=== PATIENT | female | born 1995 | race Caucasian/White ===

== ENCOUNTER 2025-03-23 08:50 | Outpatient (REF) | payer OTHER, SELFPAY ==
--- NOTE | ~2025-03-23 | US_ITS ---
EXAMINATION: US THYROID CLINICAL INFORMATION: Abnormal weight loss, nontoxic thyroid nodule. COMPARISON: None available. TECHNIQUE: Linear transducer grayscale and color Doppler examination with attention to the region of the thyroid. FINDINGS: SIZE: Measurements of the thyroid lobes and nodules are given in sagittal, anteroposterior and transverse dimensions respectively. Right Thyroid Lobe: 4.6 x 1.7 x 1.2 cm, volume 4.9 mL. Parenchyma: The gland echotexture is homogeneous. Thyroid vascularity is normal. Left Thyroid Lobe: 4.5 x 1.2 x 1.5 cm, volume 4.2 mL. Parenchyma: The gland echotexture is homogeneous. Thyroid vascularity is normal. Isthmus: 0.3 cm in maximum AP dimension. There are no discrete nodules identified in the thyroid gland. NODES: No lymphadenopathy is seen in the tissue surrounding the thyroid gland. US/US thyroid IMPRESSION: 1. Normal thyroid ultrasound. No nodules. Electronically signed by: Jose Martinez MD 03/23/2025 11:28 AM EDT
--- OUTSIDE RECORDS SUMMARY | 2025-03-23 09:23 | XMS_ITS | Encounter Summary ---
Author Organization [facility] Address [address] [place] [address] [place] [phone] Phone Care Team Providers Care Casino Beverage Server Name Role Phone Bertha Burr CNP Primary Care Provider + Radha Lara DO Primary Care Provider + Encounter Details Date Type Department Care Team (Late st Contact Info) Description 01/30/2023 Procedure Pass [facility] Endoscopy Admitting Dept Virtual Department [address] [place] [address] Social History Tobacco Use Types Packs/Day Years Used Date Smoking Tobacco: Never Smokeless Tobacco: Never Alcohol Use Standard Drinks/Week Comments Yes 0 (1 standard drink = 0.6 oz pur e alcohol) socially-once a week Education Answer Date Recorded Are you interested in more education? Not on james e 10/17/2022 Are you concerned about learning? Not on file 10/17/2022 No 10/17/2022 No 10/17/2022 Digital Access Answer Date Recorded No 11/18/2022 No 11/18/2022 Reliable internet access at home? Not on file 11/18/2022 Device with a working camera? Not on file Comments No Sex and Gender Information Value Date Recorded Sex Assigned at Not on file Legal Sex Female 2:58 PM EDT Gender Identity Not on file Sexual Orientation Not on file documented as of this encounter Plan of Treatment Not on file documented as of this encounter Visit Diagnoses Not on filedocumented in this encounter Care Teams Casino Beverage Server Relationship Specialty Start Date End Date Bertha Burr CNP [address] [place] [address] [email or web address] PCP - General Gynecology 03/26/18 03/22/23 Radha Lara DO [address] [place] [address] [email or web address] PCP - General Family Medicine 03/23/23 documented as of this encounter Additional Source Comments The information contained in this document represents components of the legal health record. It is not the complete legal health record.[facility]
--- OUTSIDE RECORDS SUMMARY | 2025-03-23 09:23 | XMS_ITS | Clinical Summary ---
Author Organization [facility] Address [address] [place] [address] Care Team Providers Care Sustainability Consultant Name Role Phone Divya Montanez MD Primary Care Provider [phone] Divya Montanez MD Unavailable [phone] Medications Norethin Gurmeet-Eth Estrad-FE (07/11) 1-20 MG-MCG per tablet TAKE 1 TABLET DAILY DIRECTED. 84 3 09/24/2015 Active Active Problems Problem Noted Date Diagnosed Date ASCUS of cervix with negative high risk HPV 01/21 Well woman exam with routine gynecological exam 02/10/2017 Screen for sexually transmitted diseases 016 Metrorrhagia 11/14/2015 Overview (07/26/2023): Impression - [id number]: was improved on Nuvaring but she does not want to use that, we discussed option like Nexplanon , ortho evra, Depo because of much better effectiveness nydia with progesterone methods, she declines now, also discussed IUD. she wants to work at [employer] over the summer while she ois away from boyfriend, discussed condoms Dyspareunia 11/14/2015 Overview (07/26/2023): Impression - [id number]: discussed using a silicone based lubricant NYDIA with condoms. 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: persistent positive lyme IgM; Description: persistent positive lyme IgM Psoriasis 02/24/2012 Overview (07/26/2023): Description: Scalp Resolved Problems Problem Noted Date Diagnosed Date Resolved Date Concussion 11/10/2013 11/24/2013 Immunizations Immunization Administration Dates Next Due DT (pediatric) 03/18/2006 DTaP 12/04/1999, 7,05/13/1996,03/09/1996,0 01/01/1996 HPV4 (Gardasil 4) 02/03/2011,05/24/2008,03/18/20 06 Hep A - 12/26/2013 Hep B (adult) 09/07/1996,1995,1995 IPV 12/04/1999,05/01/1997,03/09/1996 Influenza (SEASONAL) - 04/05/2015,05/06/2014,10/2012 MMR 12/04/1999,05/02/1997 Meningococcal ACWY (Menactra) 05/18/2013 PPD/TST (Tuberculin Skin Test) 12/26/2013 Tdap 02/10/2017 Family History Medical History Relation Name Comments Autism Brother Autistic Disord er : Brother Other Brother Sensory Integra tion Dysfunction : Brother Other Father Attention-defic it Hyperactivity Disorder : Father, Sibling, Family History Gastrointestinal Disorder Mother Ir ritable Bowel Syndrome : Mother, Father, Family History Neuromuscular Disorder Mother Fibro myalgia : Mother Other Mother Psoriasis : Mot her Psych/Mental Health Mother Anxiety Disorder NOS : Mother Gastrointestinal Disorder Other Ir ritable Bowel Syndrome : Mother, Father, Family History Other Other Attention-defic it Hyperactivity Disorder : Father, Sibling, Family History Other Sibling Attention-defic it Hyperactivity Disorder : Father, Sibling, Family History Relation Name Status Comments Brother Father Mother Other Sibling Social History Tobacco Use Types Packs/Day Years Used Date Smoking Tobacco: Never Assessed Comments:Smoking Status:No c urrent tobacco use Comments Unknown Sex and Gender Information Value Date Recorded Sex Assigned at Not on file Legal Sex Female 9:33 PM EDT Gender Identity Not on file Sexual Orientation Not on file Last Filed Vital Signs Vital Sign Reading Time Taken Comments Blood Pressure 110/70 01/28/2018 2:50 PM EDT Pulse 59 01/28/2018 2:50 PM EDT Temperature 37.2 C (98.9 F) 01/28/2018 2:50 PM EDT Respiratory Rate - - Oxygen Saturation 98% 01/28/2018 2:50 PM EDT RA Inhaled Oxygen Concentration - - Weight 61.7 kg (136 lb) 01/28/2018 2:50 PM EDT Height 167.6 cm (5' 6 ) 01/28/2018 2:50 PM EDT Body Mass Index 21.95 01/28/2018 2:50 PM EDT Plan of Treatment Health Maintenance Due Date Last Done Comments Hepatitis C Screening 1995 Hep A (2 of 2 - 2-dose series) 06/28/2014 12/26/2013 Pap Smear 01/28/2021 01/28/2018, 02/10/2017 COVID-19 Vaccine ( season) 2025 Influenza (#1) 2025 04/05/2015, 04/22, 02/24/2013 DTaP/Tdap/Td (7 - Td or Tdap) 02/10/2027 02/10/2017, 12/04/1999, 05/01/1997, Additional history exists Zoster (Shingrix) (1 of 2) 11/03/2045 Hep B Completed 09/07/1996, 11/20, 1995 HPV Vaccine Completed 02/03/2011, 08/2007, 03/18/2006 Meningococcal ACWY Completed 05/18/2013 Hib Aged Out No longer eligi ble based on patient's age to complete this topic Pneumococcal Aged Out No longer eligi ble based on patient's age to complete this topic Procedures Procedure Name Priority Date/Time Associated Diagnosis Comments THINPREP PAP REFLEX HPV MRNA E6/E7, CHLAMYDIA/N.GONORRH OEAE Routine 01/28/2018 3:30 PM EDT from Last 3 Months or Most Recently Relevant to Health Maintenance Results * THINPREP PAP REFLEX HPV MRNA E6/E7, CHLAMYDIA/N.GONORRHOEAE (01/28/2018 3:30 PM EDT) Clinical information None given PHCT CONVERSIONS Comment:[NL1] LMP [id number]\ PHC T CONVERSIONS Date of previous PAP smear 0 PHCT CONVERSIONS Comment:[NL1] Date of previous biopsy NONE GIVEN PHCT CONVERSIONS Comment:[NL1] Specimen source (Cvx/Vag) Cervix PHCT CONVERSIONS Comment:[NL1] Statement of Adequacy (Cvx/Vag) Satisfactory for evaluation. Endocervical/henry sformation zone component present. PHCT CONVERSIONS Comment:[NL1] Streptococcus pyogenes Ag (Throat) Negative for intraepithelial lesion or malignancy. PHCT CONVERSIONS Comment:[NL1] Appliance Installer (Cvx/Vag) BLC,CT(ASCP) CT screening location: [place] [address] PHCT CONVERSIONS Comment:[NL1] Appliance Installer (Cvx/Vag) RMM, CT(ASCP) CT screening location: [place] [address] PHCT CONVERSIONS Comment:[NL1] Chlamydia trachomatis rRNA NOT DETECTED NOT DETECTED PHCT CONVERSIONS Comment:[NL1] Neisseria Gonorrhoeae rRNA NOT DETECTED NOT DETECTED PHCT CONVERSIONS Comment:[NL1] COMMENT SEE NOTE PHCT CONVERSIONS Comment: This test was performed using the APTIMA COMBO2 Assay ([employer] The analytical performance characteristics of this assay, when used to test SurePath specimens have been determined by [employer]. [NL1] COMMENT SEE NOTE PHCT CONVERSIONS Comment: EXPLANATORY NOTE: The Pap is a screening test for cervical cancer. It is not a diagnostic test and is subject to false negative and false positive results. It is most reliable when a satisfactory sample, regularly obtained, is submitted with relevant clinical findings and history, and when the Pap result is evaluated along with historic and current clinical information. [NL1] 01/28/2018 3:30 PM EDT Narrative PHCT CONVERSIONS - 01/31/2018 8:55 PM EDT [facility] Collection Date/Time: [id number] [facility] Testing performed at: [facility], [employer], [address] [place] [address], [address], [place], [address], Video Control Operator: Marina Collins MD [facility] Collection Date/Time: [facility] Results Received Date/Time: [id number] [facility] Reported Date/Time: [id number] 8:05AM by Divya Montanez: Your Pap smear was normal. STD screening is negative. Dr Montanez Divya Montanez MD PATHOLOGY-INTERFACED Final R esult PHCT CONVERSIONS from Last 3 Months or Most Recently Relevant to Health Maintenance Care Teams Sustainability Consultant Relationship Specialty Start Date End Date Divya Montanez MD [address] [place] [address] PCP - General 01/26/23 Divya Montanez MD [address] [place] [address] PCP - Backup PCP Family Medicine 07/22/23
--- OUTSIDE RECORDS SUMMARY | 2025-03-23 09:23 | XMS_ITS | Clinical Summary ---
Author Organization [facility] Address [address] [place] [phone] Phone Care Team Providers Care Washer Engineer Helper Name Role Phone Radha Lara DO Primary Care Provider + Allergies No known active allergies Medications imiquimod (ALDARA) 5 % cream 11/13/19 23 Active lamoTRIgine (LAMICTAL) 100 MG IMMEDIATE release tablet Take 200 mg by mouth daily. 09/26/19 23 Active LORazepam (ATIVAN) 0.5 MG tablet Take 0.5 mg by mouth every 6 (six) hours as needed for anxiety. Active levonorgestreL (KYLEENA) 17.5 mcg/24 hrs (5 yrs) 19.5 mg intrauterine deviceIndications : contraception 1 Device by Intrauterine route Once every 5 years. Indications: control Active cholecalciferol, vitamin D3, (VITAMIN D3 ORAL) Take 1 capsule by mouth daily. Active albuterol 90 mcg/actuation inhaler Inhale 2 puffs into the lungs every 6 (six) hours as needed for wheezing. Active acetaminophen (TYLENOL) 325 mg tablet Take 2 tablets (650 mg total) by mouth every 4 (four) hours as needed. 0 03/09/20 23 Active ibuprofen (ADVIL,MOTRIN) 200 MG tablet Take 2 tablets (400 mg total) by mouth every 6 (six) hours as needed for pain (specific location in comments). 03/09/20 23 Active Active Problems No known active problems Social History Tobacco Use Types Packs/Day Years Used Date Smoking Tobacco: Never Smokeless Tobacco: Never Tobacco Cessation:Counseling Given: Not Answered Alcohol Use Standard Drinks/Week Comments Yes 0 [...] with a working camera? Not on file Intimate Partner Violence Answer Date R ecorded Are you denied basic needs s uch as food, clothing, or medical care? No 03/09/2023 In the past 12 months have y ou been in a relationship with a person who hurts, threatens, or tries to control you? No 03/09/2023 Are you denied basic needs s uch as food, clothing, or medical care? No 03/09/2023 In the past 12 months have y ou been in a relationship with a person who hurts, threatens, or tries to control you? No 03/09/2023 Comments No Sex and Gender Information Value Date Recorded Sex Assigned at Not on file Legal Sex Female 2:58 PM EDT Gender Identity Not on file Sexual Orientation Not on file Last Filed Vital Signs Vital Sign Reading Time Taken Comments Blood Pressure 104/72 03/23/2023 4:14 PM EDT Pulse 76 03/23/2023 4:14 PM EDT Temperature 36.8 C (98.2 F) 03/23/2023 4:14 PM EDT Respiratory Rate 16 03/09/2023 2:39 PM EDT Oxygen Saturation 98% 03/23/2023 4:14 PM EDT Inhaled Oxygen Concentration - - Weight 59 kg (130 lb) 03/09/2023 10:50 AM EDT Height 170.2 cm (5' 7 ) 03/09/2023 10:50 AM EDT Body Mass Index 20.36 03/09/2023 10:50 AM EDT Plan of Treatment Health Maintenance Due Date Last Done Comments Adult Td,Tdap Booster 1995 DEPRESSION SCREENING 2007 HEPATITIS C SCREENING 11/03/2013 HIV ONE-TIME SCREENING (18-6 5 YEARS) 11/03/2013 PAP SMEAR 11/03/2016 INFLUENZA VACCINE (#1) 2025 COVID-19 VACCINE (2 2024-2 6 season) 2025 07/18/2021 SMOKING STATUS SCREENING (On ce After 26 Yrs) Completed 03/23/2023 HEPATITIS A VACCINES Aged Out No long er eligible based on patient's age to complete this topic HIB VACCINES Aged Out No longer eligi ble based on patient's age to complete this topic MENINGOCOCCAL VACCINES (ACWY) Aged Out No longer eligible based on patient's age to complete this topic MENINGOCOCCAL VACCINES (B) Aged Out N o longer eligible based on patient's age to complete this topic PNEUMOCOCCAL VACCINES (0-49 years) Aged Out No longer eligible based on patient's age to complete this topic Medical Devices Implanted Type Area Custom Grinder Device Identifier Shelf Expiration Date Model / Serial / Lot Intrauterine Device Intrauterine Device Insurance Reddit Zero9EET RedditNA WELLTokopediaEET [facility] WELLIAEET CIGNA WELLIAEET CIGNA WELLFLEET [facility] BRENDAN MCNULTY BRENDAN MCNULTY Care Teams Washer Engineer Helper Relationship Specialty Start Date End Date Radha Lara DO [address] [place] [phone] [email or web address] PCP - General Family Medicine 03/23/23 Additional Source Comments The information contained in this document represents components of the legal health record. It is not the complete legal health record.[facility]
--- OUTSIDE RECORDS SUMMARY | 2025-03-23 09:23 | XMS_ITS | Encounter Summary ---
Author Organization [facility] Address [address] [place] [address] [address] [place] [address] Phone Care Team Providers Care Typewriter Assembly And Parts Inspector Name Role Phone Bertha Burr CNP Primary Care Provider + Radha Lara DO Primary Care Provider + Encounter Details Date Type Department Care Team (Late st Contact Info) Description 03/26/2018 Ancillary Orders Virtual Department [address] [place] [address] Bertha Burr CNP [address] [place] [phone] [email or web address] Fibroids Social History Tobacco Use Types Packs/Day Years Used Date Smoking Tobacco: Never Assessed Comments Unknown Sex and Gender Information Value Date Recorded Sex Assigned at Not on file Legal Sex Female 2:58 PM EDT Gender Identity Not on file Sexual Orientation Not on file documented as of this encounter Plan of Treatment Not on file documented as of this encounter Results * US PELVIS TRANSABDOMINAL PLUS TRANSVAGINAL (04/02/2018 3:59 PM EDT) Anatomical Region Laterality Modality Pelvis, Uterus/Adnexa Ultrasound 04/02/2018 10:0 5 PM EDT Impressions 04/02/2018 10:08 PM EDT Physiologic appearance of the uterus and ovaries. No uterine leiomyoma demonstrated. POS - [id number] Narrative 04/02/2018 10:08 PM EDT EXAM: US PELVIS TRANSABDOMINAL PLUS TRANSVAGINAL COMPARISON: None HISTORY: EXPELLED IUD QUESTION OF FIBROIDS FINDINGS: UTERUS: The uterus is anteflexed and midline., measures 7.0 cm x 3.4 cm x 5.0 cm, and demonstrates homogeneous myometrial echotexture. The endometrial echocomplex measures 0.8 cm in thickness. A tiny endometrial cyst identified measuring 0.3 cm. RIGHT OVARY: 2.7 cm x 1.8 cm x 2.4 cm, volume of 6.1 cm3. Normal follicular appearance. Vascular flow is demonstrated with color and spectral Doppler.. LEFT OVARY: 3.8 cm x 1.9 cm x 2.1 cm, volume of 7.9 cm3. Normal follicular appearance, with dominant cyst measuring up to 2.1 cm. Vascular flow is demonstrated with color and spectral Doppler.. PELVIS: Trace free fluid. Procedure Note Daljit Hawkins MD - 04/02/2018 EXAM: US PELVIS TRANSABDOMINAL PLUS TRANSVAGINAL COMPARISON: None HISTORY: EXPELLED IUD QUESTION OF FIBROIDS FINDINGS: UTERUS: The uterus is anteflexed and midline., measures 7.0 cm x 3.4 cm x5.0 cm, and demonstrates homogeneous myometrial echotexture. Theendometrial echocomplex measures 0.8 cm in thickness. A tiny endometrialcyst identified measuring 0.3 cm. RIGHT OVARY: 2.7 cm x 1.8 cm x 2.4 cm, volume of 6.1 cm3. Normalfollicular appearance. Vascular flow is demonstrated with color andspectral Doppler.. LEFT OVARY: 3.8 cm x 1.9 cm x 2.1 cm, volume of 7.9 cm3. Normal follicularappearance, with dominant cyst measuring up to 2.1 cm. Vascular flow isdemonstrated with color and spectral Doppler.. PELVIS: Trace free fluid. IMPRESSION: Physiologic appearance of the uterus and ovaries. No uterine leiomyomademonstrated. POS - [id number] Laisa-Sheili Burr LICENSED JOURNEYMAN ELECTRICIAN IMG US PELVIS Final Re sult documented in this encounter Visit Diagnoses Diagnosis Fibroids Leiomyoma of uterus, unspecified Fibroids Leiomyoma of uterus, unspecified documented in this encounter Care Teams Typewriter Assembly And Parts Inspector Relationship Specialty Start Date End Date Bertha Burr CNP [address] [place] [address] PCP - General Gynecology 03/26/18 03/22/23 Radha Lara DO [address] [place] [address] [email or web address] PCP - General Family Medicine 03/23/23 documented as of this encounter Additional Source Comments The information contained in this document represents components of the legal health record. It is not the complete legal health record.[facility]
--- OUTSIDE RECORDS SUMMARY | 2025-03-23 09:23 | XMS_ITS | Encounter Summary ---
Author Organization [facility] Address [address] [facility] [address] [place] [phone] Phone Care Team Providers Care Hedge Trimmer Name Role Phone Bertha Burr CNP Primary Care Provider + Radha Lara DO Primary Care Provider + Encounter Details Date Type Department Care Team (Late st Contact Info) Description 03/09/2023 Procedure Pass OR Admitting Dept - Virtual Department [address] [place] [address] Social History Tobacco Use Types Packs/Day Years [...] on filedocumented in this encounter Care Teams Hedge Trimmer Relationship Specialty Start Date End Date Bertha Burr CNP [address] [place] [address] PCP - General Gynecology 03/26/18 03/22/23 Radha Lara DO [address] [place] [address] [email or web address] PCP - General Family Medicine 03/23/23 documented as of this encounter Additional Source Comments The information contained in this document represents components of the legal health record. It is not the complete legal health record.[facility]
--- OUTSIDE RECORDS SUMMARY | 2025-03-23 09:23 | XMS_ITS | Encounter Summary ---
Author Organization [facility] Address [address] [place] [address] [place] [phone] Phone Care Team Providers Care Engraver Letter Name Role Phone BurrDavidson [email or web address] GREER Primary Care Provider + Radha Lara DO Primary Care Provider + Encounter Details Date Type Department Care Team (Late st Contact Info) Description 09/21/2019 Transcribe Orders Virtual Department [address] [place] [address] Radha Lara DO [address] [place] [phone] [email or web address] Unspecified lump in the left breast, upper inner quadrant (Primary Dx) Social History Tobacco Use Types Packs/Day Years Used Date Smoking Tobacco: Never Assessed Comments Unknown Sex and Gender Information Value Date Recorded Sex Assigned at Not on file Legal Sex Female 2:58 PM EDT Gender Identity Not on file Sexual Orientation Not on file documented as of this encounter Plan of Treatment Not on file documented as of this encounter Results * BI US BREAST LIMITED (LEFT) (09/23/2019 10:13 AM EDT) Anatomical Region Laterality Modality Breast Left, Breast Bilateral Left Ul trasound 09/23/2019 11:0 3 AM EDT Impressions 09/23/2019 11:05 AM EDT 7 mm x 6 mm x 3 mm cyst with a thin septation in the 10-11 o'clock position of the left breast correlating with the palpable abnormality. This has a benign appearance. Clinical follow-up recommended. BI-RADS CATEGORY 2 - BENIGN POS [id number] Narrative 09/23/2019 11:05 AM EDT HISTORY: Palpable lump in upper inner left breast. FINDINGS: Real-time scanning performed of the upper inner left breast performed with particular attention to the region of the palpable lump which the patient feels. There is a well-circumscribed oval mass in the 10-11 o'clock position approximately 3 cm from the nipple which is anechoic except for a thin septation. The mass enhances sound posteriorly and measures 7 mm x 6 mm x 3 mm. No other masses. No evidence of architectural distortion. Procedure Note Serafin Cabrera MD - 09/23/2019 HISTORY: Palpable lump in upper inner left breast. FINDINGS: Real-time scanning performed of the upper inner left breast performedwith particular attention to the region of the palpable lump which thepatient feels. There is a well-circumscribed oval mass in the 10-11 o'clock positionapproximately 3 cm from the nipple which is anechoic except for a thinseptation. The mass enhances sound posteriorly and measures 7 mm x 6 mm x3 mm. No other masses. No evidence of architectural distortion. IMPRESSION: 7 mm x 6 mm x 3 mm cyst with a thin septation in the 10-11 o'clockposition of the left breast correlating with the palpable abnormality.This has a benign appearance. Clinical follow-up recommended. BI-RADS CATEGORY 2 - BENIGN POS [id number] us Radha Lara DO IMG US BREAST Final Re sult documented in this encounter Visit Diagnoses Diagnosis Unspecified lump in the left breast, upper inner quadrant- Primary Unspecified lump in the left breast, upper inner quadrant documented in this encounter Care Teams Engraver Letter Relationship Specialty Start Date End Date Bertha Burr CNP [address] [place] [phone] [email or web address] PCP - General Gynecology 03/26/18 03/22/23 Radha Lara DO [address] [place] [phone] [email or web address] PCP - General Family Medicine 03/23/23 documented as of this encounter Additional Source Comments The information contained in this document represents components of the legal health record. It is not the complete legal health record.[facility]
--- OUTSIDE RECORDS SUMMARY | 2025-03-23 09:23 | XMS_ITS | Clinical Summary ---
Author Organization [facility] ity Address [address] [place] [address] Care Team Providers Care [employer] Name Role Phone Unavailable Primary Care Provider Unavailabl e Social History Tobacco Use Types Packs/Day Years Used Date Smoking Tobacco: Never Assessed Comments Unknown Sex and Gender Information Value Date Recorded Sex Assigned at Not on file Legal Sex Female 7:40 PM EDT Gender Identity Not on file Sexual Orientation Not on file Plan of Treatment Health Maintenance Due Date Last Done Comments DTaP,Tdap,and Td Vaccines (1 - Tdap) 11/03/2014 Hepatitis B Vaccines (1 of 3 - 19+ 3-dose series) 11/03/2014 Cervical Cancer Screening: P ap Smear 11/03/2016 HPV Vaccines (1 - 3-dose SCD M series) 11/03/2022 Depression Screening 06/22/2024 COVID-19 Vaccine ( - 2023-2 5 season) 2025 Influenza Vaccine (#1) 2025 RSV Immunization Adult Patie nts (1 - 1-dose 75+ series) 11/03/2070 HIB Vaccines Aged Out No longer eligi ble based on patient's age to complete this topic Hepatitis A Vaccines Aged Out No long er eligible based on patient's age to complete this topic IPV Vaccines Aged Out No longer eligi ble based on patient's age to complete this topic MMR Vaccines Aged Out No longer eligi ble based on patient's age to complete this topic Meningococcal ACWY Vaccine Aged Out N o longer eligible based on patient's age to complete this topic Meningococcal B Vaccine Aged Out No l onger eligible based on patient's age to complete this topic Pneumococcal Vaccine: Pediat rics (0 to 5 Years) and At-Risk Patients (6 to 49 Years) Aged Out No longer eligible b ased on patient's age to complete this topic RSV Immunization Patients Un roland 20 months Aged Out No longer eligible b ased on patient's age to complete this topic Varicella Vaccines Aged Out No longer eligible based on patient's age to complete this topic
== END 2025-03-23 08:51 | disposition home or self-care (01) ==
LOC: HO.UMASIMG 08:50
PROVIDERS: Visit Provider Family Medicine
DX: E04.1 Nontoxic single thyroid nodule (principal); R63.4 Abnormal weight loss
CPT/HCPCS: 76536

== ENCOUNTER → 2025-03-23 09:30 | Outpatient (BNV) | payer OTHER, SELFPAY | PROVIDERS: Visit Provider Radiology Diagnostic Radiology | DX: E04.1 Nontoxic single thyroid nodule (principal); R63.4 Abnormal weight loss | CPT/HCPCS: 76536 ==